=== PATIENT | female | born 1980 | race Two or more races ===

== ENCOUNTER 2020-11-27 20:48 | Emergency (ER) | payer OTHER ==
[~2020-11-27] VITALS: Ht 172.7 cm; Wt 113.4 kg
[2020-11-27] MEDS ORDERED: ZYRTEC10 MG PO (22:48)
[2020-11-27] MEDS ORDERED: TUSNEL LIQUID178 ML PO (22:48)
[2020-11-27] MEDS ORDERED: DOLOGEN CAPLET1 EACH PO (22:48)
== END 2020-11-27 22:49 | disposition home or self-care (01) ==
LOC: ER 20:48
DX: B38.9 Coccidioidomycosis, unspecified (principal); R09.81 Nasal congestion; R05.9 Cough, unspecified; J80 Acute respiratory distress syndrome; Z03.818 Encounter for observation for suspected exposure to other biological agents ruled out

== ENCOUNTER 2023-09-12 20:09 | Emergency (ER) | payer OTHER ==
[~2023-09-12] VITALS: Ht 172.7 cm; Wt 113.4 kg
[~2023-09-12 20:09] MED LIST: DOLOGEN CAPLET1 EACH PO; TUSNEL LIQUID178 ML PO; ZYRTEC10 MG PO
[2023-09-12] MEDS ORDERED: IRBESARTAN150 MG PO (20:41)
[2023-09-12] MEDS ORDERED: TOPROL XL50 M1 PO (20:41)
[2023-09-12] MEDS ORDERED: KETOROLAC TROMETHAMINE 30 MG VIAL IM STA (22:25)
[2023-09-12 23:22] LABS: HEMATOCRIT 28.8 % (36.0-45.00); MEAN CORPUSCULAR HGB CONC 30.8 g/dl (32.0-36.0); PLATELET COUNT 208 K/uL (150-450); RED BLOOD COUNT 4.18 M/uL (4.00-6.00); RED CELL DISTRIBUTION WIDTH 17.8 % (11.5-14.5)
[2023-09-12 23:36] LABS: ALBUMIN 3.7 gm/dL (3.4-5.0); BILIRUBIN TOTAL 0.31 mg/dL (0.3-1.2); CALCIUM 8.5 mg/dL (8.5-10.1); CREATININE SERUM 0.79 mg/dL (0.55-1.02); GFR 79.81; GLOBULINA 3.9 G/DL (2.4-3.5); POTASSIUM 3.8 mEq/L (3.5-5.1); TOTAL PROTEIN 7.6 gm/dL (6.4-8.2)
[2023-09-12 23:48] LABS: MEAN CORPUSCULAR HEMOGLOBIN 21.2 pg (27.00-32.0)
[2023-09-12 23:49] LABS: HEMOGLOBIN 8.9 g/dL (12.0-15.00); MEAN CELL VOLUME 68.9 fL (80.00-100.00)
== END 2023-09-13 00:07 | disposition home or self-care (01) ==
LOC: ER 20:10
PROVIDERS: General Practice
DX: D64.9 Anemia, unspecified (principal); R07.9 Chest pain, unspecified; R07.89 Other chest pain; I10 Essential (primary) hypertension

== ENCOUNTER 2023-10-13 19:50 | Emergency (ER) | payer OTHER ==
[~2023-10-13] VITALS: Ht 172.7 cm; Wt 113.4 kg
[~2023-10-13 19:50] MED LIST changes: +IRBESARTAN150 MG PO; +TOPROL XL50 M1 PO
[2023-10-13] MEDS ORDERED: FAMOTIDINE/PF 20 MG/2 ML VIAL IV PUSH STA (20:49)
[2023-10-13] MEDS ORDERED: FAMOTIDINE/PF 20 MG/2 ML VIAL ONE (20:54)
[2023-10-13 21:27] LABS: HEMATOCRIT 31.3 % (36.0-45.00); HEMOGLOBIN 9.6 g/dL (12.0-15.00); MEAN CELL VOLUME 72.2 fL (80.00-100.00); MEAN CORPUSCULAR HEMOGLOBIN 22.3 pg (27.00-32.0); MEAN CORPUSCULAR HGB CONC 30.8 g/dl (32.0-36.0); PLATELET COUNT 219 K/uL (150-450); RED BLOOD COUNT 4.33 M/uL (4.00-6.00)
[2023-10-13 21:28] LABS: RED CELL DISTRIBUTION WIDTH 21.6 % (11.5-14.5)
[2023-10-13 21:48] LABS: CALCIUM 8.6 mg/dL (8.5-10.1); CREATININE SERUM 0.74 mg/dL (0.55-1.02); GFR 85.65; POTASSIUM 3.8 mEq/L (3.5-5.1)
[2023-10-13] MEDS ORDERED: ENALAPRILAT DIHYDRATE 1.25 MG/ML VIAL IV STA (22:08)
[2023-10-13] MEDS ORDERED: ENALAPRILAT DIHYDRATE 1.25 MG/ML VIAL IV ONE (22:24)
== END 2023-10-14 00:33 | disposition home or self-care (01) ==
LOC: ER 19:51
PROVIDERS: General Practice
DX: R07.89 Other chest pain (principal)

== ENCOUNTER 2024-04-04 09:34 | Emergency (ER) | payer OTHER ==
[~2024-04-04] VITALS: Ht 172.7 cm; Wt 105.2 kg
[2024-04-04] MEDS ORDERED: KETOROLAC TROMETHAMINE 10 MG TABLET PO ONE ×2 (10:45→11:08)
[2024-04-04 11:28] LABS: HEMATOCRIT 33.2 % (36.0-45.00); MEAN CELL VOLUME 72.3 fL (80.00-100.00); MEAN CORPUSCULAR HEMOGLOBIN 21.7 pg (27.00-32.0); MEAN CORPUSCULAR HGB CONC 30.1 g/dl (32.0-36.0); PLATELET COUNT 215 K/uL (150-450); RED BLOOD COUNT 4.59 M/uL (4.00-6.00); RED CELL DISTRIBUTION WIDTH 17.5 % (11.5-14.5)
[2024-04-04] MEDS ORDERED: FE C TABLET1 EACH PO (13:09)
== END 2024-04-04 13:15 | disposition home or self-care (01) ==
LOC: ER 09:36
PROVIDERS: General Practice
DX: F41.9 Anxiety disorder, unspecified (principal); D64.9 Anemia, unspecified; R07.9 Chest pain, unspecified; I10 Essential (primary) hypertension